=== PATIENT | female | born 1980 | race Caucasian/White ===

== ENCOUNTER 2021-10-08 09:00 | Outpatient (RCR) | payer BC ==
[2005-09-17 06:59] VITALS: TEMP 97.7
[~2021-10-08 09:00] MED LIST: NO HOME MEDICATIONS; PEPCID 20MG TAB20 MG PO
== END 2021-10-16 | disposition home or self-care (01) ==
LOC: WSPT
DX: M25.512 Pain in left shoulder (principal)